=== PATIENT | female | born 1945 | race Two or more races ===

== ENCOUNTER → 2021-08-05 | Outpatient (CLI) | payer OTHER ==
[~2021-08-05] VITALS: Ht 162.6 cm; Wt 79.8 kg
[2021-08-05] VITALS (7 sets, daily range): BP systolic 111–138; BP diastolic 56–85
[~2021-08-05] MED LIST: REGENERON 1200mg/250ml NS 250 ML IV ONE
== END | disposition home or self-care (01) ==
LOC: ER 13:32
PROVIDERS: ATTEND Internal Medicine
DX: U07.1 COVID-19 (principal)
CPT/HCPCS: J7050; M0243; Q0244

== ENCOUNTER 2025-10-10 07:49 | Inpatient (IN) | payer OTHER ==
[~2025-10-10] VITALS: Ht 165.1 cm; Wt 100.9 kg
[2025-10-10] MEDS: BUPIVACAINE W/ EPINEPH 0.25% INJ 50ML MDV ONE (07:15)
[~2025-10-10 07:49] MED LIST changes: +ATOR-507 PO; +METF-370 PO; +METOCLOPRAMIDE HCL 5MG/ml INJ 2ml VIAL IV PRN; +ONDANSETRON HCL 4 MG/2 ML VIAL IV PRN; -REGENERON 1200mg/250ml NS 250 ML IV ONE; +hydrALAZINE HCL 20 MG/ML VL IV PRN
[2025-10-10] MEDS ORDERED: MIDAZOLAM HCL 2MG/2ML 2ml VIAL (1mg/ml) ONE (07:54)
[2025-10-10] MEDS ORDERED: fentaNYL CITRATE 100 MCG/2 ML VL ONE (07:54)
[2025-10-10] MEDS ORDERED: LIDOCAINE 2% (LOCAL ANESTH.) PF 5ml SDV ONE (07:55)
[2025-10-10] MEDS ORDERED: METOCLOPRAMIDE HCL 5MG/ml INJ 2ml VIAL ONE (07:55)
[2025-10-10] MEDS ORDERED: ONDANSETRON HCL 4 MG/2 ML VIAL ONE (07:55)
[2025-10-10] MEDS ORDERED: PROPOFOL 10 MG/ML 20 ML IV ONE (07:56)
[2025-10-10] MEDS: CEFEPIME 1GM/50ML 50 ML IV ONE (08:34)
[2025-10-10] MEDS: ceFAZolin 2 GM/D5W50ml 50 ML IV ONE (08:34)
[2025-10-10] MEDS: TRANEXAMIC ACID 20 ML ONE (08:50)
[2025-10-10] MEDS ORDERED: LIDOCAINE W/ EPINEPHRINE 1% 20ML VIAL ONE (09:09)
[2025-10-10] MEDS: VANCOMYCIN HCL 1000 MG VL ONE (09:46)
--- NOTE | 2025-10-10 10:20 | DVHOP2 ---
Operative Report - 2 Report Details Date: 10/10/25 Preop Diagnosis: Right hip degenerative arthritis Postop Diagnosis: Right hip degenerative arthritis Surgeon: Bee Cotton MD Anesthesiologist: Андрей Anesthesia: Regional Drains: Jyoti closed wound suction Implant: Debbie Z one stem size five standard offset, 36 ceramic head-3.5 neck length, 50 G7 acetabular shell, flat poly liner, acetabular cap Consent: The patient was informed of the risks and benefits of the procedure. These include but are not limited to complications of anesthesia, postoperative infection, incomplete relief of symptoms, recurrence of symptoms, damage to blood vessels, nerves and tendons, deep venous thrombosis, pulmonary embolism and possible need for repeat surgery in the future. Complications: None Estimated Blood Loss: 100 cc Fluids: See anesthesia record Findings: Denuded cartilage, eburnated bone, osteophytes Indications for Surgery: Right hip degenerative arthritis with severe pain and functional impairment despite home nonoperative treatment Name of Procedure Performed Right total hip arthroplasty Procedure Details Procedure Details: The patient was brought to the operating room and given spinal anesthetic with adequate analgesia obtained. The patient was positioned lateral decubitus with the operative side up, stabilized with hip positioners. Axillary roll applied and lower extremities well-padded. Preop patient received IV Ancef, cefepime and IV tranexamic acid. Surgical timeout was performed verifying patient, laterality and procedure. The hip and lower extremity were prepped and draped in sterile fashion. Incision was made over the greater trochanter. Subcutaneous dissection and hemostasis were performed with Bovie and aqua mantis. I identified the fascia which was incised with Bovie and Charnley retractor inserted. I identified the gluteus medius that was split at the junction of its anterior and middle thirds with Bovie then incised off the anterior greater trochanter. I incised the anterior gluteus minimus which was elevated off the capsule. I elevated the reflected head of the rectus. I then performed anterior capsulectomy with Bovie. I extended capsular incision posterior medially and superior laterally. The head was dislocated. Femoral neck cut was made with saw and head removed. Head diameter was calipered on the back table. I adjusted retractors to expose the acetabulum. I circumferentially removed labral tissue with Bovie. I removed foveal tissue with Bovie, curette and rongeur. I then began reaming sequentially paying attention to inclination and version as I went. I trialed which was stable so acetabular implant was brought into the field and tapped into the acetabulum with good fixation achieved. I screwed in the acetabular cap. I then brought up the flat liner which was spun to make sure there was no soft tissue entrapment then tapped in and stability verified. I then brought my attention to the proximal femur. The leg was placed in the sterile bag anteriorly. I cleaned up soft tissue at the greater trochanter shoulder with Bovie. I then used a rongeur to clip the lateral neck. I then used a box osteotome, canal finder and lateralizing rasp. I sequentially broached to size 13. I revised the femoral neck cut with calcar planer. I trialed with a [0] neck length and [36] head which was stable. Intraoperative AP pelvis x-ray was obtained to verify length, offset and implant size. Based on x-ray decided on the-3.5 neck length after trialing for stability.. The hip was dislocated. Neck and head trial removed. Broach was removed. I tapped in the femoral implant with good fixation achieved. I cleaned and dried the Spencer taper and tapped on the ceramic head. The hip was again reduced and tested for stability which was good. I irrigated with biasurge. I placed a 2 grams of vancomycin in the deep and superficial wound. I repaired the minimus and medius to the anterior greater trochanter with #[5] FiberWire in running fashion . I oversewed the repair with 0 Vicryl. I repaired the fascia with #0 Ethibond interrupted [id number]. Deep subcutaneous tissue was closed with 0 Vicryl. Superficial subcutaneous tissue was closed with 2-0 Vicryl. The skin was closed with nimesh. I then applied the Jyoti closed wound suction. Patient tolerated the procedure well and was brought to the recovery room in stable condition. Condition Stable Disposition Still a Patient BEE COTTON MD Oct 10, 2025 10:20
[2025-10-10 10:26] VITALS: PULSE 66; RESP 16; O2SAT 99
--- NOTE | 2025-10-10 10:36 | DVH ---
Right HIP RADIOGRAPH. CLINICAL INDICATION: INTRA-OP RIGHT TOTAL HIP ARTHROPLASTY TECHNIQUE: 4 views of the right hip were obtained. FINDINGS: Right total hip arthroplasty with expected postsurgical changes. IMPRESSION: 1. Right total hip arthroplasty with expected postsurgical changes.
[2025-10-10] MEDS: HYDROmorphone HCL 2 MG/ML VL/or syr IV PRN (11:09)
[2025-10-10] MEDS: SODIUM CHLORIDE 0.9% 1,000 ML IV SCH (11:30)
--- NOTE | 2025-10-10 11:40 | DVH ---
EXAM: XY PELVIS AP CLINICAL INDICATION: postop TECHNIQUE: XY PELVIS AP COMPARISON: None FINDINGS/IMPRESSION: Right total hip arthroplasty with expected postsurgical changes.
[2025-10-10] MEDS: ACETAMINOPHEN 325 MG TAB PO SCH (12:00)
[2025-10-10 12:08] VITALS: O2SAT 93
[2025-10-10] MEDS: ONDANSETRON HCL 4 MG/2 ML VIAL IV PRN (12:13)
[2025-10-10] MEDS: ACETAMINOPHEN IV 1000 MG/100ML (10MG/ML) IV ONE (12:18)
[2025-10-10] MEDS: BUPIVACAINE 0.25% INJ 50ML VIAL ONE (12:19)
[2025-10-10] MEDS: TETRACAINE 1% INJ 2 ML VIAL IJ ONE (12:19)
[2025-10-10] MEDS: HYDROmorphone HCL 2 MG/ML VL/or syr ONE (12:20)
[2025-10-10 12:39] VITALS: BP 144/74; PULSE 85; RESP 19; TEMP 97.5; O2SAT 95
[2025-10-10] MEDS: ceFAZolin 2 GM/D5W50ml 50 ML IV SCH (13:21)
[2025-10-10 16:30] VITALS: BP 139/83; PULSE 79; RESP 19; TEMP 97.3; O2SAT 91
[2025-10-10] MEDS ORDERED: MORPHINE SULFATE INJ 2 MG/ml SYRG IV PRN (19:00)
[2025-10-10 20:00] VITALS: PULSE 69; RESP 16; O2SAT 97
[2025-10-10] MEDS: MORPHINE SULFATE 4 MG/ML SYR/VIAL IV PRN (20:47)
[2025-10-10 21:00] VITALS: BP 138/75; PULSE 69; RESP 18; TEMP 98; O2SAT 94
[2025-10-10] MEDS: PREGABALIN 25 MG CAP PO SCH (21:57)
[2025-10-11] VITALS (7 sets, daily range): BP systolic 115–159; BP diastolic 70–83; PULSE 75–100; RESP 17–20; TEMP 97.7–98.5; O2SAT 90–97
[2025-10-11 06:34] LABS: Hematocrit 40.2 % (36.0-46.0); Hemoglobin 13.5 g/dL (12.2-16.2); Mean Corpuscular Hemoglobin 29.4 pg (28.0-32.0); Mean Corpuscular Volume 87.6 fL (80.0-100.0); Nucleated Red Blood Cells % 0.0 %
[2025-10-11 07:00] LABS: Chloride 101 mmol/L (98-107); Potassium 4.1 mmol/L (3.5-5.1); Sodium 138 mmol/L (136-145)
[2025-10-11 07:01] LABS: Anion Gap 9 (5-15); Calcium 9.4 mg/dL (8.7-10.4); Carbon Dioxide 28 mmol/L (20-31)
[2025-10-11 07:06] LABS: BUN/Creatinine Ratio 20.0 (10.0-20.0); Blood Urea Nitrogen 11 mg/dL (9-23)
[2025-10-11 07:14] LABS: Glucose 131 mg/dL (74-106)
[2025-10-11] MEDS: APIXABAN 2.5 MG TAB PO SCH (09:05)
--- NOTE | 2025-10-11 14:14 | DVHINCON2 ---
Date Seen: Oct 11, 2025 Referring Physician Orthopedics. Reason for Consultation Medical management. History of Present Illness 79-year-old female with a known history of diabetes mellitus type 2, dyslipidemia who is here for elective right hip surgery. Patient's underwent right total hip arthroplasty. Pain currently complaining of minimal pain in the right hip currently working with the physical therapy. Past Medical History Diabetes mellitus type 2 Dyslipidemia Past Surgical History Total abdominal hysterectomy Status post right total hip arthroplasty. Family History: Hypertension G8 MOTHER Allergies: Coded Allergies: NO KNOWN ALLERGIES (Unverified , 08/05/21) Home Meds Reported Medications Atorvastatin Calcium (Lipitor) 40 Mg Tab, 40 MG PO, TAB 10/09/25 Metformin Hydrochloride (Metformin Hcl) 500 Mg Tab, 500 MG PO, TAB 10/09/25 Current Medications Current Medications Medications (Trade) Dose Ordered Sig/Adamaris Route PRN Reason Start Time Stop Time Status Last Admin Metformin HCl (Glucophage) 500 mg BID PO 10/10/25 22:00 10/11/25 09:05 Pregabalin (Lyrica Capsule) 50 mg BID PO 10/10/25 22:00 10/11/25 09:06 Apixaban (Eliquis) 2.5 mg BID PO 10/11/25 10:00 11/15/25 09:59 10/11/25 09:05 Morphine Sulfate 2 mg Q4HPRN PRN IV SEVERE PAIN (7-10 PAIN SCALE) 10/10/25 19:00 10/10/25 20:37 DC Morphine Sulfate 2 mg Q4HPRN PRN IV SEVERE PAIN (7-10 PAIN SCALE) 10/10/25 20:45 10/11/25 13:47 Review of Systems Twelve review of system are negative besides mentioned above. 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 Labs/Diagnostic Data Labs Test 10/11/25 06:05 10/11/25 04:46 Range/Units POC Glucose 143 H 70-106 mg/dl White Blood Count 17.7 H 4.4-10.8 10^3/uL Red Blood Count 4.59 4.0-5.20 10^6/uL Hemoglobin 13.5 12.2-16.2 g/dL Hematocrit 40.2 36.0-46.0 % Mean Corpuscular Volume 87.6 80.0-100.0 fL Mean Corpuscular Hemoglobin 29.4 28.0-32.0 pg Mean Corpuscular Hemoglobin Concent 33.6 32.0-36.0 g/dL Red Cell Distribution Width 13.4 11.8-14.3 % Platelet Count 202 140-450 10^3/uL Mean Platelet Volume 8.9 6.9-10.8 fL Neutrophils (%) (Auto) 81.4 H 37.0-80.0 % Lymphocytes (%) (Auto) 6.7 L 10.0-50.0 % Monocytes (%) (Auto) 11.9 0.0-12.0 % Eosinophils (%) (Auto) 0.0 0.0-7.0 % Basophils (%) (Auto) 0.0 0.0-2.0 % Neutrophils # (Auto) 14.4 H 1.6-8.6 10 ^3/uL Lymphocytes # (Auto) 1.2 0.4-5.4 10 ^3/uL Monocytes # (Auto) 2.1 H 0-1.3 10 ^3/uL Eosinophils # (Auto) 0 0-0.8 10 ^3/uL Basophils # (Auto) 0 0-0.2 10 ^3/uL Nucleated Red Blood Cells 0.0 % Sodium Level 138 136-145 mmol/L Potassium Level 4.1 3.5-5.1 mmol/L Chloride Level 101 98-107 mmol/L Carbon Dioxide Level 28 20-31 mmol/L Anion Gap 9 5-15 Blood Urea Nitrogen 11 9-23 mg/dL Creatinine 0.55 0.550-1.02 mg/dL Glomerular Filtration Rate Calc 93 >90 mL/min BUN/Creatinine Ratio 20.0 10.0-20.0 Serum Glucose 131 H 74-106 mg/dL Calcium Level 9.4 8.7-10.4 mg/dL Assessment 79-year-old female with a known history of diabetes mellitus type 2, dyslipidemia, she is here for elective surgery. 1. Diabetes mellitus type 2 2. Dyslipidemia 3. Status post right total hip arthroplasty for degenerative joint disease postop day one -continue pain meds as needed, DVT GI prophylaxis, physical therapy evaluation and treatment, discharge plan per Orthopedics. Plan discussed with: Patient Date of Service: Oct 11, 2025 Billing Provider: LSIM MORILLO MD Common Visit Codes: NOT BILLABLE SLIM MORILLO MD Oct 11, 2025 14:14
[2025-10-11] MEDS ORDERED: DEXTROSE (50%) 50ML SYRG IV PRN (15:15)
[2025-10-11] MEDS: ACCU-CHEK COMFORT CURVE STRIP VI SCH (17:11)
[2025-10-11] MEDS: InsuLIN REG 1unit/0.01ml Soln (100units/ml) SC SCH (17:33)
[2025-10-12] VITALS (9 sets, daily range): BP systolic 123–141; BP diastolic 53–82; PULSE 58–90; RESP 15–18; TEMP 97.7–98.5; O2SAT 91–96
--- NOTE | 2025-10-12 08:59 | DVHPN2 ---
Progress Note - Dictate Date Seen: Oct 12, 2025 Has the PT tested + for MRSA If YES, has PT been informed?: No Medical Necessity Reason Pt with a Central, PICC or Fol: No Subjective Main complaint is pain. Patient unable to tolerate oxycodone secondary to nausea and has been on dilaudid. Patient now notifies me that she doesn't have a commode at home though preop she had said they have one. vital signs Vital Sign Date Time Temp Pulse Resp B/P (MAP) Pulse Ox O2 Delivery O2 Flow Rate FiO2 10/12/25 08:34 97.7 86 17 139/81 (100) 91 97.7 10/11/25 20:00 Room Air* 0 21 Total Intake and Output 10/11/25 10/11/25 10/12/25 15:00 23:00 07:00 Intake Total 580 ml 650 ml Output Total 300 ml 725 ml Balance -300 ml -145 ml 650 ml medications Current Medications Medications Dose Ordered Sig/Adamaris Route Start Time Stop Time Status Last Admin Dose Admin Pregabalin 50 mg BID PO 10/10/25 22:00 10/11/25 22:02 50 MG Apixaban 2.5 mg BID PO 10/11/25 10:00 11/15/25 09:59 10/11/25 22:01 2.5 MG Sodium Chloride 1,000 ml @ 125 mls/hr Q8H IV 10/10/25 11:30 10/12/25 03:59 125 MLS/HR Acetaminophen 650 mg Q6HP PO 10/10/25 12:00 10/12/25 06:15 650 MG Ondansetron HCl 4 mg Q4HP PRN IV 10/10/25 10:30 10/11/25 05:11 4 MG Oxycodone HCl 5 mg Q4HP PRN PO 10/10/25 11:30 10/10/25 14:48 5 MG Oxycodone HCl 10 mg Q4HP PRN PO 10/10/25 11:30 Hold 10/10/25 18:22 10 MG Morphine Sulfate 2 mg Q4HPRN PRN IV 10/10/25 20:45 10/12/25 01:44 2 MG Diagnostic Test (Pha) 1 strip ACHS 10/11/25 17:00 10/12/25 06:06 1 STRIP Insulin Human Regular ACHS SC 10/11/25 17:00 10/11/25 22:01 2 UNITS Dextrose 50 ml UD PRN IV 10/11/25 15:15 objective alert and oriented x4 dressing intact no calf edema or TTP distal nvintact labs and xray reviewed laboratory and microbiology Laboratory Tests 10/11/25 04:46 Test 10/11/25 04:46 Range/Units Serum Glucose 131 H 74-106 mg/dL Assessment/Plan POD # 2 s/p right total hip arthroplasty stable postop but unable to tolerate po meds due to nausea Plan: order commode for home I will try norco and make sure she has zofran and or phenergan for nausea Will assess tomorrow to determine ability to discharge home Dietary Evaluation Review Comments: CCHO-60 diet with Juuven BID supplement Expected Outcomes/Goals: healed wounds, gradual wt loss Plan discussed with: Patient BEE COTTON MD Oct 12, 2025 08:59
[2025-10-12] MEDS ORDERED: PROCHLORPERAZINE MALEATE 10 MG TAB PO PRN (09:00)
[2025-10-12] MEDS ORDERED: DOCUSATE SOD 100 MG CAP PO PRN (09:00)
[2025-10-12] MEDS ORDERED: SENNA 8.6 MG TAB PO PRN (09:00)
[2025-10-12] MEDS ORDERED: HYDROcodone-ACET 10/325MG TAB PO PRN (09:00)
[2025-10-12] MEDS: HYDROcodone-ACET 5/325MG TAB PO PRN (14:44)
--- NOTE | 2025-10-12 14:55 | DVHPN2 ---
Subjective Patient is complaining of nausea earlier with the oxycodone, changed to [place]. 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 Medications Current Medications Medications Dose Ordered Sig/Adamaris Route Start Time Stop Time Status Last Admin Dose Admin Pregabalin 50 mg BID PO 10/10/25 22:00 10/12/25 09:07 50 MG Apixaban 2.5 mg BID PO 10/11/25 10:00 11/15/25 09:59 10/12/25 09:07 2.5 MG Sodium Chloride 1,000 ml @ 125 mls/hr Q8H IV 10/10/25 11:30 10/12/25 12:00 125 MLS/HR Acetaminophen 650 mg Q6HP PO 10/10/25 12:00 10/12/25 06:15 650 MG Ondansetron HCl 4 mg Q4HP PRN IV 10/10/25 10:30 10/12/25 14:44 4 MG Diagnostic Test (Pha) 1 strip ACHS 10/11/25 17:00 10/12/25 11:30 1 STRIP Insulin Human Regular ACHS SC 10/11/25 17:00 10/11/25 22:01 2 UNITS Dextrose 50 ml UD PRN IV 10/11/25 15:15 Acetaminophen/ Hydrocodone Bitart 1 tab Q4HP PRN PO 10/12/25 09:00 Acetaminophen/ Hydrocodone Bitart 1 tab Q4HPRN PRN PO 10/12/25 09:00 10/12/25 14:44 1 TAB Prochlorperazine Maleate 5 mg TIDP PRN PO 10/12/25 09:00 Sennosides 8.6 mg QHSP PRN PO 10/12/25 09:00 Docusate Sodium 100 mg BIDPRN PRN PO 10/12/25 09:00 Magnesium Hydroxide 30 ml DAILY PRN PO 10/12/25 09:00 Laboratory Results Laboratory Tests 10/11/25 04:46 Assessment/Plan Assessment/Plan 79-year-old female with a known history of diabetes mellitus type 2, dyslipidemia, she is here for elective surgery. 1. Hyperglycemia in the setting of Diabetes mellitus type 2 2. Dyslipidemia 3. Nausea suspected secondary to narcotic use 4. Status post right total hip arthroplasty for degenerative joint disease postop day 2 -continue pain meds as needed, DVT GI prophylaxis, physical therapy evaluation and treatment, discharge plan per Orthopedics. Plan discussed with: Patient My Orders Orders - SLIM MORILLO MD Procedure Category Date Status Time Glucose Blood PHA 10/11/25 In Process (Accu-Chek Comfort 17:00 Insulin R (Human) PHA 10/11/25 In Process (Insulin R) 17:00 Dextrose 50% Syringe PHA 10/11/25 In Process 15:15 Complete Blood Count LAB 10/12/25 Logged 13:55 Date of Service: Oct 12, 2025 Billing Provider: SLIM MORILLO MD Common Visit Codes: NOT BILLABLE SLIM MORILLO MD Oct 12, 2025 14:55
[2025-10-12 15:35] LABS: Hematocrit 40.3 % (36.0-46.0); Hemoglobin 13.1 g/dL (12.2-16.2); Mean Corpuscular Hemoglobin 28.7 pg (28.0-32.0); Mean Corpuscular Volume 88.6 fL (80.0-100.0); Nucleated Red Blood Cells % 0.1 %
[2025-10-13 01:00] VITALS: BP 149/80; PULSE 73; RESP 15; TEMP 97.5; O2SAT 99
[2025-10-13 05:00] VITALS: BP 145/88; PULSE 80; RESP 15; TEMP 98.2; O2SAT 92
[2025-10-13 08:00] VITALS: PULSE 70; RESP 18
[2025-10-13 09:00] VITALS: BP_SYST 131; BP_SYST 137; BP_DIAS 74; BP_DIAS 79; PULSE 62; PULSE 80; RESP 17; TEMP 97.6; TEMP 98.2; O2SAT 90; O2SAT 96
[2025-10-13] MEDS: MILK OF MAGNESIA 30ML SUSP PO PRN (09:12)
--- NOTE | 2025-10-13 10:32 | DVHDS2 ---
Discharge Summary Date of Admission Oct 10, 2025 at 11:28 Date of Discharge: Oct 13, 2025 Admitting Diagnosis Right hip degenerative arthritis Wounds: Right hip postop Labs/Diagnostic Data: Laboratory Results Test 10/12/25 17:49 10/12/25 14:24 10/11/25 04:46 POC Glucose 110 mg/dl (70-106) White Blood Count 12.5 10^3/uL (4.4-10.8) Red Blood Count 4.55 10^6/uL (4.0-5.20) Hemoglobin 13.1 g/dL (12.2-16.2) Hematocrit 40.3 % (36.0-46.0) Mean Corpuscular Volume 88.6 fL (80.0-100.0) Mean Corpuscular Hemoglobin 28.7 pg (28.0-32.0) Mean Corpuscular Hemoglobin Concent 32.4 g/dL (32.0-36.0) Red Cell Distribution Width 13.8 % (11.8-14.3) Platelet Count 197 10^3/uL (140-450) Mean Platelet Volume 9.1 fL (6.9-10.8) Neutrophils (%) (Auto) 63.3 % (37.0-80.0) Lymphocytes (%) (Auto) 23.6 % (10.0-50.0) Monocytes (%) (Auto) 12.7 % (0.0-12.0) Eosinophils (%) (Auto) 0.2 % (0.0-7.0) Basophils (%) (Auto) 0.2 % (0.0-2.0) Neutrophils # (Auto) 7.9 10 ^3/uL (1.6-8.6) Lymphocytes # (Auto) 2.9 10 ^3/uL (0.4-5.4) Monocytes # (Auto) 1.6 10 ^3/uL (0-1.3) Eosinophils # (Auto) 0 10 ^3/uL (0-0.8) Basophils # (Auto) 0 10 ^3/uL (0-0.2) Nucleated Red Blood Cells 0.1 % Sodium Level 138 mmol/L (136-145) Potassium Level 4.1 mmol/L (3.5-5.1) Chloride Level 101 mmol/L (98-107) Carbon Dioxide Level 28 mmol/L (20-31) Anion Gap 9 (5-15) Blood Urea Nitrogen 11 mg/dL (9-23) Creatinine 0.55 mg/dL (0.550-1.02) Glomerular Filtration Rate Calc 93 mL/min (>90) BUN/Creatinine Ratio 20.0 (10.0-20.0) Serum Glucose 131 mg/dL (74-106) Calcium Level 9.4 mg/dL (8.7-10.4) Other Laboratory Tests 10/12/25 14:24 10/11/25 04:46 Brief Hx & Hospital Course: Patient was admitted on Wednesday for surgery which was right total hip arthroplasty which was performed without complications. Postop patient was admitted to the hospital for physical therapy pain management and DVT prophylaxis. Patient remained stable throughout her hospital stay though did have difficulty with pain and mobility which necessitated the increased length of stay. Patient had pain under control and was stable for discharge. Internal Medicine consultation was performed for perioperative management. Consults/Reason for consult Internal medicine consult for medical comorbidities Operations or Procedures Right total hip arthroplasty Condition at Discharge: Stable Final Diagnosis/Problems List Right hip degenerative arthritis s/p right total hip arthroplasty Discharge Disposition: Home Discharge Instruct/Medications Diet: Consistent carbohydrate Activity: Light activity Activity comment: Weight-bearing as tolerated with a walker Follow Up/Referral: Follow up with Dr. Cotton as scheduled on October 22 Medications: Prescriptions for pain and DVT prophylaxis have already been picked up by the family Miscellaneous Medications Atorvastatin Calcium (Lipitor), 40 MG PO, (Reported) Metformin Hydrochloride (Metformin Hcl), 500 MG PO, (Reported) Discharge Statement: "Patient was advised to return to the ER or call 911 if any headaches, dizziness, shortness of breath, chest pain, abdominal pain, bleeding, fevers, or worsening of medical condition. Patient was counseled about treatment plan, medications, possible side effects, patientverbalized understanding. All questions were answered to the best of my ability. This discharge took greater then 30 minutes in planning, reviewing documentation, counseling the patient, and discussing with other team members." DME: Diagnosis: postop total hip arthroplasty ASSESSMENT ASSESSMENT Assessment Right hip degenerative arthritis s/p right total hip arthroplasty BEE COTTON MD Oct 13, 2025 10:32
--- NOTE | 2025-10-13 10:33 | DVHPN2 ---
Progress Note - Dictate Date Seen: Oct 13, 2025 Has the PT tested + for MRSA If YES, has PT been informed?: No Medical Necessity Reason Pt with a Central, PICC or Fol: No Subjective Pain improved. Nausea resolved. Patient with adequate mobility for discharge to home. vital signs Vital Sign Date Time Temp Pulse Resp B/P (MAP) Pulse Ox O2 Delivery O2 Flow Rate FiO2 10/13/25 09:00 98.2 80 17 137/79 (98) 90 98.2 10/13/25 08:00 Room Air* 0 21 Total Intake and Output 10/12/25 10/12/25 10/13/25 15:00 23:00 07:00 Intake Total 1120 ml 240 ml Balance 1120 ml 240 ml medications Current Medications Medications Dose Ordered Sig/Adamaris Route Start Time Stop Time Status Last Admin Dose Admin Pregabalin 50 mg BID PO 10/10/25 22:00 10/13/25 09:12 50 MG Apixaban 2.5 mg BID PO 10/11/25 10:00 11/15/25 09:59 10/13/25 09:12 2.5 MG Sodium Chloride 1,000 ml @ 125 mls/hr Q8H IV 10/10/25 11:30 10/13/25 03:40 125 MLS/HR Acetaminophen 650 mg Q6HP PO 10/10/25 12:00 10/13/25 05:47 650 MG Ondansetron HCl 4 mg Q4HP PRN IV 10/10/25 10:30 10/12/25 14:44 4 MG Diagnostic Test (Pha) 1 strip ACHS 10/11/25 17:00 10/13/25 06:01 1 STRIP Insulin Human Regular ACHS SC 10/11/25 17:00 10/12/25 21:27 2 UNITS Dextrose 50 ml UD PRN IV 10/11/25 15:15 Acetaminophen/ Hydrocodone Bitart 1 tab Q4HP PRN PO 10/12/25 09:00 Acetaminophen/ Hydrocodone Bitart 1 tab Q4HPRN PRN PO 10/12/25 09:00 10/13/25 09:13 1 TAB Prochlorperazine Maleate 5 mg TIDP PRN PO 10/12/25 09:00 Sennosides 8.6 mg QHSP PRN PO 10/12/25 09:00 Docusate Sodium 100 mg BIDPRN PRN PO 10/12/25 09:00 Magnesium Hydroxide 30 ml DAILY PRN PO 10/12/25 09:00 10/13/25 09:12 30 ML objective alert and oriented x4 dressing intact no calf edema or TTP distal nv intact labs reviewed laboratory and microbiology Laboratory Tests 10/12/25 14:24 10/11/25 04:46 Test 10/11/25 04:46 Range/Units Serum Glucose 131 H 74-106 mg/dL Assessment/Plan POD # 3 s/p right total hip arthroplasty stable postop Plan: Discharge to home as per orders. Dietary Evaluation Review Comments: CCHO-60 diet with Juuven BID supplement Expected Outcomes/Goals: healed wounds, gradual wt loss Plan discussed with: Patient BEE COTTON MD Oct 13, 2025 10:33
[2025-10-13 10:36] VITALS: BP 137/79; PULSE 80; RESP 18; TEMP 98.2; O2SAT 90
== END 2025-10-13 12:00 | disposition home or self-care (01) | DRG 470 ==
LOC: SUR 07:49 → OVERFLOW 11:28 → WEST WING 13:41
PROVIDERS: ADMIT Internal Medicine; ATTEND Internal Medicine
PROC: 0SR904A Replacement of Right Hip Joint with Ceramic on Polyethylene Synthetic Substitute, Uncemented, Open Approach (ICD-10-PCS; principal; 2025-10-10 08:34)
DX: M16.11 Unilateral primary osteoarthritis, right hip (principal); E11.9 Type 2 diabetes mellitus without complications; E78.5 Hyperlipidemia, unspecified; Z82.49 Family history of ischemic heart disease and other diseases of the circulatory system; Z90.710 Acquired absence of both cervix and uterus
CPT/HCPCS: 36415; 72170; 73501; 80048; 82962; 85025; 86850; 86900; 86901; 97116; 97163; G0378; J1100; J1815; J2003; J2250; J2405; J2704; J3490; Q0164